=== PATIENT | male | born 1940 | race Caucasian/White ===

== ENCOUNTER → 2017-04-18 | Outpatient (CLI) | payer OTHER ==
[~2017-04-18] MED LIST: ALPR0.5T8 PO; ASPI-1061 PO; LEVO112T7 PO; LISI-661 PO; SIMV-261 PO; SULF-168 PO; TAMS0.4C32 PO
== END | disposition home or self-care (01) ==
LOC: RADPV 12:27
PROVIDERS: ATTEND Internal Medicine
DX: J98.11 Atelectasis (principal); I70.0 Atherosclerosis of aorta; M47.14 Other spondylosis with myelopathy, thoracic region
CPT/HCPCS: 71020

== ENCOUNTER 2021-11-25 16:59 | Inpatient (IN) | payer MEDICARE, OTHER ==
[~2021-11-25] VITALS: Ht 175.3 cm; Wt 66.7 kg
[~2021-11-25 16:59] MED LIST changes: -ASPI-1061 PO; +ASPI81TA87 PO; -LISI-661 PO; +LISI-893 PO
[2021-11-25] MEDS ORDERED: SODIUM CHLORIDE 0.9% 2,150 ML IV ONE (18:45)
[2021-11-25] MEDS ORDERED: 0.9% SODIUM CHLORIDE 10 ML SYRINGE IVP PRN ×2 (18:45→20:15)
[2021-11-25 19:06] LABS: BASOPHILS % (AUTO) 0.9 % (0.0-2.0); EOSINOPHILS % (AUTO) 0 % (1.0-6.0); HEMATOCRIT 44.1 % (41-53); HEMOGLOBIN 15.1 g/dL (13.5-17.5); LYMPHOCYTES # (AUTO) 0.1 K/uL (1.0-4.8); LYMPHOCYTES % (AUTO) 1.1 % (22.0-44.0); MEAN CORPUSCULAR HEMOGLOBIN 30.4 pg (26.0-34.0); MEAN CORPUSCULAR HGB CONC 34.2 G/dL (31.0-37.0); MEAN CORPUSCULAR VOLUME 89 fL (80-100); MONOCYTES # (AUTO) 0.3 K/uL (0.1-1.0); MONOCYTES % (AUTO) 4.3 % (2.0-9.0); NEUTROPHILS # (AUTO) 7.5 K/uL (1.8-7.7); PLATELET COUNT (AUTO) 102 K/uL (150-450); RED BLOOD CELL COUNT(AUTO) 4.95 MIL/uL (4.50-5.90); RED CELL DISTRIBUTION WIDTH 13.8 % (11.5-14.5)
[2021-11-25 19:07] LABS: NEUTROPHILS % (AUTO) 93.7 % (40.0-70.0)
[2021-11-25 19:23] LABS: INR 1.1 (0.9-1.1); PROTHROMBIN TIME 11.7 SEC (9.4-11.6)
[2021-11-25 19:24] LABS: LACTIC ACID 1.2 mmol/L (0.4-2.0)
[2021-11-25 19:28] LABS: ANION GAP 9 mmol/L (8-16); CALCIUM, TOTAL 9.5 mg/dL (8.8-10.5); CARBON DIOXIDE 26 mmol/L (22-29); CHLORIDE 100 mmol/L (98-107); CREATININE 1.14 mg/dL (0.60-1.30); GLUCOSE,RANDOM 119 mg/dL (70-110); POTASSIUM 3.7 mmol/L (3.5-5.1); SODIUM SERUM 135 mmol/L (136-145); UREA NITROGEN, BLOOD 21 mg/dL (7-18)
[2021-11-25 19:31] LABS: GLOMERULAR FILTR. RATE CALC > 60 mL/min (>60)
[2021-11-25 19:33] LABS: ALANINE AMINOTRANSFERASE 44 U/L (12-78); ALBUMIN 3.4 g/dL (3.4-5.0); ALKALINE PHOSPHATASE 100 U/L (46-116); ASPARTATE AMINOTRANSFERASE 69 U/L (15-37); BILIRUBIN,TOTAL 0.9 mg/dL (0.1-1.0); TOTAL PROTEIN, SERUM 7.8 g/dL (6.4-8.2)
[2021-11-25] MEDS ORDERED: ASPIRIN 325 MG TABLET PO ONE (20:00)
[2021-11-25] MEDS ORDERED: ACETAMINOPHEN 325 MG TABLET PO PRN ×2 (20:15→23:00)
[2021-11-25] MEDS ORDERED: ONDANSETRON HCL 4 MG/2 ML VIAL IVP PRN ×2 (20:15→23:00)
[2021-11-25] MEDS ORDERED: HEPARIN SODIUM 25000 UNITS/D5W 250 ML IV PRN (20:30)
[2021-11-25] MEDS ORDERED: HEPARIN SODIUM,PORCINE 5,000 UNITS/ML VIAL IVP ONE ×2 (20:30→23:00)
[2021-11-25] MEDS ORDERED: HEPARIN SODIUM,PORCINE 5,000 UNITS/ML VIAL IVP PRN ×4 (20:30→23:00)
[2021-11-25 20:32] LABS: BASOPHILS % (AUTO) 0.1 % (0.0-2.0); EOSINOPHILS % (AUTO) 0 % (1.0-6.0); HEMATOCRIT 42.8 % (41-53); HEMOGLOBIN 14.6 g/dL (13.5-17.5); LYMPHOCYTES # (AUTO) 0.1 K/uL (1.0-4.8); LYMPHOCYTES % (AUTO) 1.3 % (22.0-44.0); MEAN CORPUSCULAR HEMOGLOBIN 30.5 pg (26.0-34.0); MEAN CORPUSCULAR HGB CONC 34.2 G/dL (31.0-37.0); MEAN CORPUSCULAR VOLUME 89 fL (80-100); MONOCYTES # (AUTO) 0.5 K/uL (0.1-1.0); MONOCYTES % (AUTO) 6.4 % (2.0-9.0); NEUTROPHILS # (AUTO) 7.7 K/uL (1.8-7.7); RED CELL DISTRIBUTION WIDTH 13.7 % (11.5-14.5)
[2021-11-25 20:59] LABS: INR 1.1 (0.9-1.1); PROTHROMBIN TIME 11.9 SEC (9.4-11.6)
[2021-11-25 21:11] LABS: NEUTROPHILS % (AUTO) 92.2 % (40.0-70.0)
[2021-11-25 21:12] LABS: PLATELET COUNT (AUTO) 90 K/uL (150-450)
[2021-11-25 21:16] LABS: APPEARANCE,URINE CLOUDY (CLEAR); BILIRUBIN,URINE NEGATIVE (NEGATIVE); GLUCOSE, URINE (UA) NEGATIVE (NEGATIVE); KETONES,URINE 40 mg/dL (NEGATIVE); LEUKOCYTE ESTERASE ,URINE SMALL (NEGATIVE); NITRATE,URINE NEGATIVE (NEGATIVE); OCCULT BLOOD,URINE LARGE (NEGATIVE); PROTEIN,URINE POS 1+ (NEGATIVE)
[2021-11-25 21:33] LABS: BACTERIA,URINE None Seen /HPF (None Seen); RBC,URINE 0-2 /HPF (0-2); SQUAMOUS EPITHELIAL CELL,UR Rare /LPF (None Seen)
[2021-11-25] MEDS ORDERED: ACETAMINOPHEN 325 MG TABLET PO ONE (22:30)
[2021-11-25 22:53] LABS: COVID AG,FIA SOURCE NASAL SWAB
[2021-11-25] MEDS ORDERED: ALBUTEROL SULFATE 2.5 MG/0.5 ML NEB SOLUTION NEB PRN (23:00)
[2021-11-25] MEDS ORDERED: IPRATROPIUM BROMIDE 0.5 MG/2.5 ML NEB SOLUTION NEB PRN (23:00)
[2021-11-25] MEDS ORDERED: BISACODYL 10 MG RECTAL RECTAL SUPPOSITORY PR PRN (23:00)
[2021-11-25] MEDS ORDERED: IOHEXOL 350 MG/ML 100 ML VIAL ONE (23:15)
[2021-11-25] MEDS ORDERED: SODIUM CHLORIDE 0.9% 100 ML ONE (23:15)
[2021-11-25] MEDS: CefTRIAXone 1 GM/DEXTROSE 50 ML IV SCH (23:19)
[2021-11-25 23:21] LABS: BASOPHILS % (AUTO) 0.2 % (0.0-2.0); EOSINOPHILS % (AUTO) 0 % (1.0-6.0); HEMATOCRIT 42.5 % (41-53); HEMOGLOBIN 14.4 g/dL (13.5-17.5); LYMPHOCYTES # (AUTO) 0.1 K/uL (1.0-4.8); LYMPHOCYTES % (AUTO) 1.3 % (22.0-44.0); MEAN CORPUSCULAR HEMOGLOBIN 30.3 pg (26.0-34.0); MEAN CORPUSCULAR VOLUME 89 fL (80-100); NEUTROPHILS # (AUTO) 3.7 K/uL (1.8-7.7); PLATELET COUNT (AUTO) 86 K/uL (150-450); RED BLOOD CELL COUNT(AUTO) 4.77 MIL/uL (4.50-5.90)
[2021-11-25 23:36] LABS: NEUTROPHILS % (AUTO) 97.5 % (40.0-70.0)
[2021-11-25 23:48] LABS: INFLUENZA TYPE A NEGATIVE FOR TYPE A (NEGATIVE); INFLUENZA TYPE B NEGATIVE FOR TYPE B (NEGATIVE)
[2021-11-25 23:49] LABS: INR 1.2 (0.9-1.1); PROTHROMBIN TIME 12.7 SEC (9.4-11.6)
[2021-11-26] MEDS ORDERED: HEPARIN SODIUM,PORCINE 5,000 UNITS/ML VIAL SQ SCH
[2021-11-26] MEDS: HEPARIN SODIUM 25000 UNITS/D5W 250 ML IV PRN (00:54)
[2021-11-26] MEDS: ZOLPIDEM TARTRATE 5 MG TABLET PO PRN ×2 (01:04→21:02)
[2021-11-26] MEDS: MORPHINE SULFATE 2 MG/ML SYRINGE IVP PRN ×2 (01:04→11:54)
[2021-11-26] MEDS ORDERED: SODIUM CHLORIDE 0.9% 1,000 ML IV ONE (01:15)
[2021-11-26] MEDS ORDERED: PIPERACILLIN SODIUM/TAZOBACTAM 4.5 GM in DEXTROSE 5%-WATER 100 ML IV ONE (01:15)
[2021-11-26 07:05] LABS: CALCIUM, TOTAL 8.5 mg/dL (8.8-10.5); CREATININE 1.22 mg/dL (0.60-1.30); POTASSIUM 4.3 mmol/L (3.5-5.1)
[2021-11-26 07:08] LABS: BILIRUBIN,TOTAL 0.7 mg/dL (0.1-1.0)
[2021-11-26 07:09] LABS: ALBUMIN 2.7 g/dL (3.4-5.0); TOTAL PROTEIN, SERUM 6.7 g/dL (6.4-8.2)
[2021-11-26 07:49] LABS: BASOPHILS % (AUTO) 0.1 % (0.0-2.0); EOSINOPHILS % (AUTO) 0.2 % (1.0-6.0); HEMATOCRIT 45.1 % (41-53); HEMOGLOBIN 15.2 g/dL (13.5-17.5); LYMPHOCYTES # (AUTO) 0.3 K/uL (1.0-4.8); LYMPHOCYTES % (AUTO) 3.3 % (22.0-44.0); MEAN CORPUSCULAR HEMOGLOBIN 30.6 pg (26.0-34.0); MEAN CORPUSCULAR HGB CONC 33.8 G/dL (31.0-37.0); MEAN CORPUSCULAR VOLUME 91 fL (80-100); MONOCYTES # (AUTO) 0.4 K/uL (0.1-1.0); MONOCYTES % (AUTO) 5.5 % (2.0-9.0); NEUTROPHILS # (AUTO) 7.2 K/uL (1.8-7.7); NEUTROPHILS % (AUTO) 90.9 % (40.0-70.0); PLATELET COUNT (AUTO) 83 K/uL (150-450); RED BLOOD CELL COUNT(AUTO) 4.98 MIL/uL (4.50-5.90); RED CELL DISTRIBUTION WIDTH 14.1 % (11.5-14.5)
[2021-11-26] MEDS: ASPIRIN 81 MG DR TABLET PO SCH (10:30)
[2021-11-26] MEDS: PANTOPRAZOLE SODIUM 40 MG/VIAL IVP SCH (10:30)
[2021-11-26] MEDS: LISINOPRIL 10 MG TABLET PO SCH (10:30)
[2021-11-26 12:00] VITALS: BP 141/72
[2021-11-26] MEDS: LEVOTHYROXINE SODIUM 112 MCG TABLET PO SCH (12:00)
[2021-11-26] MEDS: SIMVASTATIN 40 MG TABLET PO SCH (12:00)
[2021-11-26] MEDS: HYDROCODONE/ACETAMINOPHEN 5-325 MG TABLET PO PRN (12:39)
[2021-11-26 16:00] VITALS: BP 102/52
[2021-11-26 20:00] VITALS: BP 121/59
[2021-11-26] MEDS: ALPRAZolam 1 MG TABLET PO SCH (21:02)
[2021-11-26] MEDS: TAMSULOSIN HCL 0.4 MG CAPSULE PO SCH (21:02)
[2021-11-26] MEDS: CefTRIAXone 1 GM/DEXTROSE 50 ML IV SCH (23:07)
[2021-11-26] MEDS ORDERED: SODIUM CHLORIDE 0.9% 250 ML IV ONE (23:20)
[2021-11-27] VITALS (9 sets, daily range): BP systolic 122–166; BP diastolic 40–89
[2021-11-27] MEDS: HEPARIN SODIUM 25000 UNITS/D5W 250 ML IV PRN (00:13)
[2021-11-27] MEDS: LEVOTHYROXINE SODIUM 112 MCG TABLET PO SCH (07:03)
[2021-11-27] MEDS: PANTOPRAZOLE SODIUM 40 MG/VIAL IVP SCH (09:36)
[2021-11-27] MEDS: LISINOPRIL 10 MG TABLET PO SCH (09:36)
[2021-11-27] MEDS: SIMVASTATIN 40 MG TABLET PO SCH (09:36)
[2021-11-27] MEDS: ASPIRIN 81 MG DR TABLET PO SCH (09:36)
[2021-11-27] MEDS ORDERED: CARVEDILOL 6.25 MG TABLET PO SCH (11:30)
[2021-11-27] MEDS ORDERED: VANCOMYCIN HCL 1 GM/D5% WATER 200 ML IV ONE (15:00)
[2021-11-27] MEDS: MORPHINE SULFATE 2 MG/ML SYRINGE IVP PRN ×2 (16:51→21:04)
[2021-11-27] MEDS: HYDROCODONE/ACETAMINOPHEN 5-325 MG TABLET PO PRN (18:09)
[2021-11-27] MEDS ORDERED: SODIUM CHLORIDE 0.9% 100 ML ONE (20:14)
[2021-11-27] MEDS: TAMSULOSIN HCL 0.4 MG CAPSULE PO SCH (20:52)
[2021-11-27] MEDS: CARVEDILOL 12.5 MG TABLET PO SCH (20:52)
[2021-11-27] MEDS: ALPRAZolam 1 MG TABLET PO SCH (20:53)
[2021-11-27] MEDS: CefTRIAXone 1 GM/DEXTROSE 50 ML IV SCH (23:26)
[2021-11-28] VITALS (12 sets, daily range): BP systolic 109–177; BP diastolic 45–89
[2021-11-28] MEDS: MORPHINE SULFATE 2 MG/ML SYRINGE IVP PRN ×3 (04:45→20:01)
[2021-11-28 05:15] LABS: ANION GAP 4 mmol/L (8-16); CARBON DIOXIDE 30 mmol/L (22-29); CHLORIDE 100 mmol/L (98-107); CREATININE 1.07 mg/dL (0.60-1.30); GLUCOSE,RANDOM 105 mg/dL (70-110); POTASSIUM 4.5 mmol/L (3.5-5.1); SODIUM SERUM 134 mmol/L (136-145); UREA NITROGEN, BLOOD 17 mg/dL (7-18)
[2021-11-28 05:17] LABS: GLOMERULAR FILTR. RATE CALC > 60 mL/min (>60)
[2021-11-28] MEDS: LEVOTHYROXINE SODIUM 112 MCG TABLET PO SCH (07:01)
[2021-11-28] MEDS ORDERED: VANCOMYCIN HCL 1.25 GM in DEXTROSE 5%-WATER 250 ML IV SCH (08:00)
[2021-11-28] MEDS: PANTOPRAZOLE SODIUM 40 MG/VIAL IVP SCH (08:20)
[2021-11-28] MEDS: CARVEDILOL 12.5 MG TABLET PO SCH ×2 (08:21→21:06)
[2021-11-28] MEDS: ASPIRIN 81 MG DR TABLET PO SCH (08:21)
[2021-11-28] MEDS: ETHYL ALCOHOL 62% ANTISEPTIC NASAL INHALANT 0.6 ML AMPUL NASAL SCH ×2 (08:21→21:05)
[2021-11-28] MEDS: LISINOPRIL 10 MG TABLET PO SCH (08:21)
[2021-11-28] MEDS: SIMVASTATIN 40 MG TABLET PO SCH (10:54)
[2021-11-28] MEDS: HYDROCODONE/ACETAMINOPHEN 5-325 MG TABLET PO PRN (13:10)
[2021-11-28] MEDS: HEPARIN SODIUM 25000 UNITS/D5W 250 ML IV PRN (15:21)
[2021-11-28] MEDS: MAGNESIUM HYDROXIDE SUSPENSION 30 ML UDCUP PO PRN (16:35)
[2021-11-28] MEDS: ALPRAZolam 1 MG TABLET PO SCH (21:06)
[2021-11-28] MEDS: TAMSULOSIN HCL 0.4 MG CAPSULE PO SCH (21:06)
[2021-11-28] MEDS: CefTRIAXone 1 GM/DEXTROSE 50 ML IV SCH (23:05)
[2021-11-29] VITALS (9 sets, daily range): BP systolic 110–186; BP diastolic 39–88
[2021-11-29] MEDS: MORPHINE SULFATE 2 MG/ML SYRINGE IVP PRN ×4 (01:10→17:17)
[2021-11-29 05:58] LABS: BASOPHILS % (AUTO) 0.5 % (0.0-2.0); EOSINOPHILS % (AUTO) 0.3 % (1.0-6.0); HEMATOCRIT 49.5 % (41-53); LYMPHOCYTES # (AUTO) 0.5 K/uL (1.0-4.8); LYMPHOCYTES % (AUTO) 5.9 % (22.0-44.0); MEAN CORPUSCULAR HEMOGLOBIN 30.4 pg (26.0-34.0); MEAN CORPUSCULAR HGB CONC 34.5 G/dL (31.0-37.0); MEAN CORPUSCULAR VOLUME 88 fL (80-100); MONOCYTES # (AUTO) 1.1 K/uL (0.1-1.0); MONOCYTES % (AUTO) 13.9 % (2.0-9.0); NEUTROPHILS % (AUTO) 79.4 % (40.0-70.0); PLATELET COUNT (AUTO) 91 K/uL (150-450); RED BLOOD CELL COUNT(AUTO) 5.62 MIL/uL (4.50-5.90); RED CELL DISTRIBUTION WIDTH 14.3 % (11.5-14.5)
[2021-11-29 06:07] LABS: ANION GAP 5 mmol/L (8-16); CALCIUM, TOTAL 9.3 mg/dL (8.8-10.5); CARBON DIOXIDE 28 mmol/L (22-29); CHLORIDE 99 mmol/L (98-107); CREATININE 0.86 mg/dL (0.60-1.30); GLUCOSE,RANDOM 98 mg/dL (70-110); POTASSIUM 3.7 mmol/L (3.5-5.1); SODIUM SERUM 132 mmol/L (136-145); UREA NITROGEN, BLOOD 14 mg/dL (7-18)
[2021-11-29 06:10] LABS: GLOMERULAR FILTR. RATE CALC > 60 mL/min (>60)
[2021-11-29] MEDS: LEVOTHYROXINE SODIUM 112 MCG TABLET PO SCH (06:53)
[2021-11-29] MEDS: VANCOMYCIN HCL 750 MG in DEXTROSE 5%-WATER 250 ML IV SCH ×2 (08:58→20:12)
[2021-11-29] MEDS: CARVEDILOL 12.5 MG TABLET PO SCH ×2 (09:45→20:49)
[2021-11-29] MEDS: PANTOPRAZOLE SODIUM 40 MG/VIAL IVP SCH (09:45)
[2021-11-29] MEDS: LISINOPRIL 10 MG TABLET PO SCH (09:46)
[2021-11-29] MEDS: SIMVASTATIN 40 MG TABLET PO SCH (09:46)
[2021-11-29] MEDS: ASPIRIN 81 MG DR TABLET PO SCH (09:47)
[2021-11-29] MEDS: ETHYL ALCOHOL 62% ANTISEPTIC NASAL INHALANT 0.6 ML AMPUL NASAL SCH ×2 (09:47→20:48)
[2021-11-29] MEDS ORDERED: IOHEXOL 300 MG/ML 150 ML VIAL ONE (12:06)
[2021-11-29] MEDS ORDERED: IOHEXOL 300 MG/ML 50 ML VIAL ONE (12:06)
[2021-11-29] MEDS ORDERED: SODIUM BICARBONATE 50 MEQ/50 ML VIAL ONE (12:06)
[2021-11-29] MEDS ORDERED: HEPARIN SODIUM 1000 UNITS/NS 1,000 ML ONE (12:06)
[2021-11-29] MEDS ORDERED: LIDOCAINE/PF 1% 30 ML VIAL ONE (12:06)
[2021-11-29] MEDS ORDERED: IOHEXOL 300 MG/ML 100 ML VIAL ONE (12:06)
[2021-11-29] MEDS ORDERED: MIDAZOLAM HCL 2 MG/2 ML VIAL ONE (12:54)
[2021-11-29] MEDS ORDERED: FentaNYL CITRATE PF 100 MCG/2 ML VIAL ONE (12:54)
[2021-11-29] MEDS ORDERED: IOHEXOL 300 MG/ML 150 ML VIAL IARTER ONE (13:15)
[2021-11-29] MEDS ORDERED: SODIUM CHLORIDE 0.9% 500 ML IV ONE (13:15)
[2021-11-29] MEDS ORDERED: LIDOCAINE 1% 30 ML/SOD BICARB 8.4% 4 ML SQ ONE (13:15)
[2021-11-29] MEDS ORDERED: HEPARIN SODIUM 1000 UNITS/NS 1,000 ML IARTER ONE (13:15)
[2021-11-29] MEDS: HYDROCODONE/ACETAMINOPHEN 5-325 MG TABLET PO PRN ×3 (14:21→18:13)
[2021-11-29] MEDS ORDERED: LIDOCAINE 2% 5 ML JELLY ONE (18:56)
[2021-11-29] MEDS ORDERED: SODIUM CHLORIDE 0.9% 250 ML IV ONE (20:47)
[2021-11-29] MEDS: TAMSULOSIN HCL 0.4 MG CAPSULE PO SCH (20:48)
[2021-11-29] MEDS: ALPRAZolam 0.25 MG TABLET PO SCH (20:49)
[2021-11-29] MEDS: CefTRIAXone 1 GM/DEXTROSE 50 ML IV SCH (23:02)
[2021-11-30] VITALS: BP 124/64
[2021-11-30 04:00] VITALS: BP 145/72
[2021-11-30 05:39] LABS: BASOPHILS % (AUTO) 0.1 % (0.0-2.0); EOSINOPHILS % (AUTO) 0.6 % (1.0-6.0); HEMATOCRIT 42.4 % (41-53); HEMOGLOBIN 14.5 g/dL (13.5-17.5); LYMPHOCYTES # (AUTO) 0.6 K/uL (1.0-4.8); LYMPHOCYTES % (AUTO) 10.1 % (22.0-44.0); MEAN CORPUSCULAR HEMOGLOBIN 30.3 pg (26.0-34.0); MEAN CORPUSCULAR HGB CONC 34.1 G/dL (31.0-37.0); MEAN CORPUSCULAR VOLUME 89 fL (80-100); MONOCYTES # (AUTO) 1.2 K/uL (0.1-1.0); MONOCYTES % (AUTO) 20.5 % (2.0-9.0); NEUTROPHILS # (AUTO) 4.1 K/uL (1.8-7.7); NEUTROPHILS % (AUTO) 68.7 % (40.0-70.0); PLATELET COUNT (AUTO) 102 K/uL (150-450); RED BLOOD CELL COUNT(AUTO) 4.78 MIL/uL (4.50-5.90); RED CELL DISTRIBUTION WIDTH 14.5 % (11.5-14.5)
[2021-11-30 05:54] LABS: ANION GAP 5 mmol/L (8-16); CALCIUM, TOTAL 8.9 mg/dL (8.8-10.5); CARBON DIOXIDE 29 mmol/L (22-29); CHLORIDE 100 mmol/L (98-107); CREATININE 0.95 mg/dL (0.60-1.30); GLOMERULAR FILTR. RATE CALC > 60 mL/min (>60); GLUCOSE,RANDOM 92 mg/dL (70-110); POTASSIUM 4.3 mmol/L (3.5-5.1); SODIUM SERUM 134 mmol/L (136-145); UREA NITROGEN, BLOOD 14 mg/dL (7-18); VANCOMYCIN,RANDOM 8.2 mcg/mL (25.0-50.0)
[2021-11-30] MEDS: LEVOTHYROXINE SODIUM 112 MCG TABLET PO SCH (06:26)
[2021-11-30 08:00] VITALS: BP 114/71
[2021-11-30] MEDS: VANCOMYCIN HCL 750 MG in DEXTROSE 5%-WATER 250 ML IV SCH ×2 (08:56→16:48)
[2021-11-30] MEDS: PANTOPRAZOLE SODIUM 40 MG/VIAL IVP SCH (09:47)
[2021-11-30] MEDS: ASPIRIN 81 MG DR TABLET PO SCH (09:48)
[2021-11-30] MEDS: CARVEDILOL 12.5 MG TABLET PO SCH ×2 (09:48→20:59)
[2021-11-30] MEDS: ETHYL ALCOHOL 62% ANTISEPTIC NASAL INHALANT 0.6 ML AMPUL NASAL SCH ×2 (09:48→21:17)
[2021-11-30] MEDS: LISINOPRIL 10 MG TABLET PO SCH (09:48)
[2021-11-30] MEDS: SIMVASTATIN 40 MG TABLET PO SCH (09:48)
[2021-11-30 12:00] VITALS: BP 118/70
[2021-11-30] MEDS: MAGNESIUM HYDROXIDE SUSPENSION 30 ML UDCUP PO PRN (18:35)
[2021-11-30 20:00] VITALS: BP 123/70
[2021-11-30] MEDS: TAMSULOSIN HCL 0.4 MG CAPSULE PO SCH (20:59)
[2021-11-30] MEDS: ALPRAZolam 0.25 MG TABLET PO SCH (20:59)
[2021-11-30] MEDS: CefTRIAXone 1 GM/DEXTROSE 50 ML IV SCH (23:08)
[2021-12-01] VITALS (7 sets, daily range): BP systolic 118–135; BP diastolic 44–80
[2021-12-01] MEDS: VANCOMYCIN HCL 750 MG in DEXTROSE 5%-WATER 250 ML IV SCH ×4 (00:02→23:27)
[2021-12-01] MEDS: LEVOTHYROXINE SODIUM 112 MCG TABLET PO SCH (06:39)
[2021-12-01 08:30] LABS: ANION GAP 10 mmol/L (8-16); CALCIUM, TOTAL 8.7 mg/dL (8.8-10.5); CARBON DIOXIDE 26 mmol/L (22-29); CHLORIDE 102 mmol/L (98-107); CREATININE 0.88 mg/dL (0.60-1.30); GLOMERULAR FILTR. RATE CALC > 60 mL/min (>60); GLUCOSE,RANDOM 100 mg/dL (70-110); POTASSIUM 4.2 mmol/L (3.5-5.1); SODIUM SERUM 138 mmol/L (136-145); UREA NITROGEN, BLOOD 13 mg/dL (7-18)
[2021-12-01] MEDS: PANTOPRAZOLE SODIUM 40 MG/VIAL IVP SCH (08:54)
[2021-12-01] MEDS: ETHYL ALCOHOL 62% ANTISEPTIC NASAL INHALANT 0.6 ML AMPUL NASAL SCH ×2 (09:00→20:21)
[2021-12-01] MEDS: SIMVASTATIN 40 MG TABLET PO SCH (09:06)
[2021-12-01] MEDS: LISINOPRIL 10 MG TABLET PO SCH (09:06)
[2021-12-01] MEDS: CARVEDILOL 12.5 MG TABLET PO SCH ×2 (09:07→20:21)
[2021-12-01] MEDS: ASPIRIN 81 MG DR TABLET PO SCH (09:08)
[2021-12-01] MEDS: ALPRAZolam 0.25 MG TABLET PO SCH (20:21)
[2021-12-01] MEDS: TAMSULOSIN HCL 0.4 MG CAPSULE PO SCH (20:21)
[2021-12-01] MEDS: CefTRIAXone 1 GM/DEXTROSE 50 ML IV SCH (22:15)
[2021-12-02 04:50] VITALS: BP 132/63
[2021-12-02] MEDS: LEVOTHYROXINE SODIUM 112 MCG TABLET PO SCH (05:34)
[2021-12-02 06:00] LABS: BASOPHILS % (AUTO) 0.3 % (0.0-2.0); EOSINOPHILS % (AUTO) 2.4 % (1.0-6.0); HEMATOCRIT 40.8 % (41-53); HEMOGLOBIN 13.9 g/dL (13.5-17.5); LYMPHOCYTES # (AUTO) 1.2 K/uL (1.0-4.8); LYMPHOCYTES % (AUTO) 21.3 % (22.0-44.0); MEAN CORPUSCULAR HEMOGLOBIN 29.9 pg (26.0-34.0); MEAN CORPUSCULAR VOLUME 88 fL (80-100); MONOCYTES # (AUTO) 0.8 K/uL (0.1-1.0); MONOCYTES % (AUTO) 14.5 % (2.0-9.0); NEUTROPHILS # (AUTO) 3.5 K/uL (1.8-7.7); NEUTROPHILS % (AUTO) 61.5 % (40.0-70.0); PLATELET COUNT (AUTO) 200 K/uL (150-450); RED BLOOD CELL COUNT(AUTO) 4.63 MIL/uL (4.50-5.90); RED CELL DISTRIBUTION WIDTH 14.2 % (11.5-14.5)
[2021-12-02 06:22] LABS: ANION GAP 6 mmol/L (8-16); CALCIUM, TOTAL 8.9 mg/dL (8.8-10.5); CARBON DIOXIDE 28 mmol/L (22-29); CHLORIDE 102 mmol/L (98-107); CREATININE 0.95 mg/dL (0.60-1.30); GLOMERULAR FILTR. RATE CALC > 60 mL/min (>60); GLUCOSE,RANDOM 93 mg/dL (70-110); POTASSIUM 4.2 mmol/L (3.5-5.1); SODIUM SERUM 136 mmol/L (136-145); UREA NITROGEN, BLOOD 13 mg/dL (7-18); VANCOMYCIN,RANDOM 19.1 mcg/mL (25.0-50.0)
[2021-12-02] MEDS: SIMVASTATIN 40 MG TABLET PO SCH (09:52)
[2021-12-02] MEDS: CARVEDILOL 12.5 MG TABLET PO SCH (09:52)
[2021-12-02] MEDS: LISINOPRIL 10 MG TABLET PO SCH (09:52)
[2021-12-02] MEDS: ASPIRIN 81 MG DR TABLET PO SCH (09:53)
[2021-12-02] MEDS: PANTOPRAZOLE SODIUM 40 MG/VIAL IVP SCH (09:53)
[2021-12-02] MEDS: VANCOMYCIN HCL 1 GM in DEXTROSE 5%-WATER 250 ML IV SCH ×2 (10:04→15:36)
[2021-12-02 11:46] VITALS: BP 125/59
[2021-12-02] MEDS ORDERED: LEVO-72 PO (11:54)
[2021-12-02] MEDS ORDERED: CARV12 PO (11:54)
[2021-12-02] MEDS: ETHYL ALCOHOL 62% ANTISEPTIC NASAL INHALANT 0.6 ML AMPUL NASAL SCH (15:36)
[2021-12-02 16:18] VITALS: BP 129/65
== END 2021-12-02 17:10 | disposition home health service (06) | DRG 871 ==
LOC: EMS 17:01 → ICUN 11-26 11:15 → ICU 11-29 04:19 → 5N 12-01 02:15
PROVIDERS: ADMIT Hospitalist; ATTEND Hospitalist
PROC: 4A023N7 Measurement of Cardiac Sampling and Pressure, Left Heart, Percutaneous Approach (ICD-10-PCS; principal; 2021-11-29)
PROC: B2111ZZ Fluoroscopy of Multiple Coronary Arteries using Low Osmolar Contrast (ICD-10-PCS; 2021-11-29)
PROC: B2151ZZ Fluoroscopy of Left Heart using Low Osmolar Contrast (ICD-10-PCS; 2021-11-29)
DX: A41.9 Sepsis, unspecified organism (principal); I21.A1 Myocardial infarction type 2; Z20.822 Contact with and (suspected) exposure to COVID-19; E78.5 Hyperlipidemia, unspecified; I48.0 Paroxysmal atrial fibrillation; D69.6 Thrombocytopenia, unspecified; D72.819 Decreased white blood cell count, unspecified; E03.9 Hypothyroidism, unspecified; I10 Essential (primary) hypertension; C61 Malignant neoplasm of prostate; N40.1 Benign prostatic hyperplasia with lower urinary tract symptoms; R33.8 Other retention of urine; N40.0 Benign prostatic hyperplasia without lower urinary tract symptoms; N41.9 Inflammatory disease of prostate, unspecified; Z85.79 Personal history of other malignant neoplasms of lymphoid, hematopoietic and related tissues; Z79.82 Long term (current) use of aspirin; Z79.899 Other long term (current) drug therapy
CPT/HCPCS: 71045; 74177; 76700; 80048; 80053; 80202; 81001; 83605; 84145; 84484; 85025; 85610; 85730; 87040; 87077; 87081; 87205; 87804; 93005; 93306; 99291; C9113; G0378; J0696; J1644; J2250; J2270; J2405; J2543; J3010; J3370; J3490; J7040; J7050; J7060; Q9967; 36415-L1; 36415-TC

== ENCOUNTER 2021-12-04 06:26 | Emergency (ER) | payer MEDICARE ==
[~2021-12-04 06:26] MED LIST changes: -ALPR0.5T8 PO; +CARV12 PO; +LEVO-72 PO; -SULF-168 PO
[2021-12-04] MEDS ORDERED: ACETAMINOPHEN/CODEINE 300-30 MG TABLET PO ONE (06:45)
[2021-12-04] MEDS ORDERED: DiphenhydrAMINE HCL 25 MG CAPSULE PO ONE (06:45)
[2021-12-04 08:05] LABS: APPEARANCE,URINE CLOUDY (CLEAR); BILIRUBIN,URINE NEGATIVE (NEGATIVE); GLUCOSE, URINE (UA) NEGATIVE (NEGATIVE); KETONES,URINE NEGATIVE (NEGATIVE); LEUKOCYTE ESTERASE ,URINE LARGE (NEGATIVE); NITRATE,URINE NEGATIVE (NEGATIVE); OCCULT BLOOD,URINE LARGE (NEGATIVE); PROTEIN,URINE POS 1+ (NEGATIVE); UROBILINOGEN,URINE 0.2 mg/dL (<=1.0)
[2021-12-04 08:55] VITALS: BP 120/80
[2021-12-04 09:08] LABS: BACTERIA,URINE Moderate /HPF (None Seen); WBC,URINE 26-50 /HPF (0-5)
== END 2021-12-04 09:05 | disposition home or self-care (01) ==
LOC: EMS 06:29
DX: T83.84XA Pain due to genitourinary prosthetic devices, implants and grafts, initial encounter (principal); E03.9 Hypothyroidism, unspecified; Z79.82 Long term (current) use of aspirin; Z79.899 Other long term (current) drug therapy
CPT/HCPCS: 81001; 87086; 99283

== ENCOUNTER 2023-02-23 17:06 | Emergency (ER) | payer MEDICARE, BC ==
[~2023-02-23] VITALS: Ht 177.8 cm; Wt 61.4 kg
[2023-02-23 18:31] LABS: BASOPHILS % (AUTO) 0.4 % (0.0-2.0); EOSINOPHILS % (AUTO) 4.3 % (1.0-6.0); HEMATOCRIT 43.2 % (41-53); HEMOGLOBIN 14.2 g/dL (13.5-17.5); LYMPHOCYTES # (AUTO) 1.2 K/uL (1.0-4.8); LYMPHOCYTES % (AUTO) 21.7 % (22.0-44.0); MEAN CORPUSCULAR HEMOGLOBIN 30.7 pg (26.0-34.0); MEAN CORPUSCULAR VOLUME 93 fL (80-100); MONOCYTES # (AUTO) 0.6 K/uL (0.1-1.0); MONOCYTES % (AUTO) 9.9 % (2.0-9.0); NEUTROPHILS # (AUTO) 3.6 K/uL (1.8-7.7); NEUTROPHILS % (AUTO) 63.7 % (40.0-70.0); PLATELET COUNT (AUTO) 151 K/uL (150-450); RED BLOOD CELL COUNT(AUTO) 4.64 MIL/uL (4.50-5.90); RED CELL DISTRIBUTION WIDTH 14.3 % (11.5-14.5)
[2023-02-23 18:45] LABS: CALCIUM, TOTAL 9.8 mg/dL (8.8-10.5); CREATININE 1.62 mg/dL (0.60-1.30); POTASSIUM 5.3 mmol/L (3.5-5.1)
[2023-02-23 18:52] LABS: ALBUMIN 3.9 g/dL (3.4-5.0); BILIRUBIN,TOTAL 0.5 mg/dL (0.1-1.0)
[2023-02-23] MEDS ORDERED: SODIUM CHLORIDE 0.9% 1,000 ML IV ONE (19:15)
[2023-02-23 20:20] LABS: APPEARANCE,URINE TURBID (CLEAR); BILIRUBIN,URINE NEGATIVE (NEGATIVE); GLUCOSE, URINE (UA) NEGATIVE (NEGATIVE); KETONES,URINE NEGATIVE (NEGATIVE); LEUKOCYTE ESTERASE ,URINE LARGE (NEGATIVE); NITRATE,URINE NEGATIVE (NEGATIVE); OCCULT BLOOD,URINE LARGE (NEGATIVE); PROTEIN,URINE 30-70 mg/dL (NEGATIVE); SPECIFIC GRAVITIY, URINE 1.011 (1.003-1.030); UROBILINOGEN,URINE <=1.0 mg/dL (<=1.0)
[2023-02-23 20:34] LABS: PROTHROMBIN TIME 10.7 SEC (9.4-11.6)
[2023-02-23 20:40] LABS: BACTERIA,URINE None Seen /HPF (None Seen); RBC,URINE Full Field /HPF (0-2); SQUAMOUS EPITHELIAL CELL,UR None Seen /LPF (None Seen); WBC,URINE None Seen /HPF (0-5)
[2023-02-23 20:46] LABS: COVID AG,FIA SOURCE NASOPHARYNGEAL
[2023-02-23 21:50] VITALS: BP 141/79
== END 2023-02-23 23:00 | disposition short-term general hospital (02) ==
LOC: EMS 17:09
DX: N17.9 Acute kidney failure, unspecified (principal); R31.0 Gross hematuria; E03.9 Hypothyroidism, unspecified; Z87.891 Personal history of nicotine dependence; Z20.822 Contact with and (suspected) exposure to COVID-19
CPT/HCPCS: 99285; 74176; 96360; 87426; 80053; 81001; 82550; 85025; 85610; 85730; 36415; J7030